=== PATIENT | male | born 1990 | race Caucasian/White ===

== ENCOUNTER 2018-07-03 20:33 | Emergency (ER) | payer MEDICAID, SELFPAY ==
--- NOTE | 2018-07-03 20:35 | W.ED.GENAD ---
Discharge Plan Disposition Patient Disposition: HOME Condition: Stable Discharge Details Chief Complaint: RespSymp Clinical Impression: Asthma with exacerbation Primary Care Provider: Chasity,[facility] ED Provider: Eduar Johnson Home Meds and New Rx's Prescriptions: New prednisone 20 mg tablet 60 mg PO DAILY 4 Days Qty: 12 RF: 0 No Action Advair Diskus 100-50 mcg/dose Blister With Device 1 puff Inhalation BID RF: 0 albuterol sulfate 90 mcg/actuation Hfa Aerosol Inhaler 2 puff Inhalation PRN PRNRF: 0 Spiriva with HandiHaler 18 mcg Capsule, W/Inhalation Device 1 puff Inhalation DAILY RF: 0 Suboxone 12-3 mg Film 20 mg SUBLINGUAL DAILY RF: 0 Discharge Instructions Instructions: Asthma (ED) Additional Instructions: follow up with your primary care provider within 1 week if you have worsening shortness of breath despite using your inhaler return to the emergency department for reevaluation Medical Decision Making 27 yo male with hx of asthma, on suboxone and denies current drug use, smokes, comes in with 2-3 days of wheezing. States he just had a child delivered upstairs and hasn't been at home and doesn't have his meds. Came down because he wants an inhaler and declines a nebulizer. Denies fevers or recent travel. He has wheezing bilaterally on exam, speaking in full sentences. He is noted to have oxygen saturation of 91% on room air on my exam but still declines to have a neb. I will start him on prednisone and give an inhaler until he can get home. He has no fevers or focal findings on exam so doubt pneumonia at this time and do not feel xray indicated or abx Differential Diagnosis uri, asthma, pna HPI General Mode of arrival: ambulatory. Date/Time Provider Initiated Documentation: 07/03/18 20:35. Limitations to Documentation: no limitations. Information obtained by: patient. History of Present Illness 27 year old M presents to the emergency department with the chief complaint of wheezing, described as mild, with intensity rated at 3. Patient started experiencing this day(s) (3) and it has been constant. No relieving factors improve symptom(s), No exacerbating factors reported . Patient did receive the following treatments prior to arrival, none Related Data Home Medications Medication Instructions Recorded Confirmed albuterol sulfate 2 puff INHALATION PRN PRN 07/03/18 07/03/18 buprenorphine-naloxone [Suboxone] 20 mg SUBLINGUAL DAILY 07/03/18 07/03/18 fluticasone-salmeterol [Advair 1 puff INHALATION BID 07/03/18 07/03/18 Diskus] prednisone 60 mg PO DAILY 4 Days #12 tab 07/03/18 tiotropium bromide [Spiriva with 1 puff INHALATION DAILY 07/03/18 07/03/18 HandiHaler] Previous Rx's Medication Instructions Recorded prednisone 60 mg PO DAILY 4 Days #12 tab 07/03/18 Allergies Allergy/AdvReac Type Severity Reaction Status Date / Time No Known Allergies Allergy Unverified 07/03/18 20:41 Review of Systems Review of Systems All systems reviewed & are unremarkable except as noted in HPI and below Constitutional Denies weakness Eyes Denies loss of vision ENT Denies change in voice Cardiovascular Denies chest pain Gastrointestinal Denies abdominal pain, Denies nausea and Denies vomiting Musculoskeletal Denies joint swelling Integumentary/Breasts Denies rash Neurologic Denies loss of vision and Denies weakness Psychiatric Denies depression [facility] Social History Smoking/Tobacco Use Status: Current every day Exam Const General: no acute distress Orientation: alert HENMT Head: normal to inspection Ears: external ears normal General nose exam: external nose normal Mouth: moist mucous membranes Eyes General: appearance normal, both eyes and all related structures Neck Neck: normal visual inspection Resp Effort & Inspection: normal respiratory effort and able to speak in complete sentences Cardio Rate: regular rate Skin General skin exam: no rashes or lesions noted Neuro General: alert and oriented x3 Extrem General: normal to inspection Psych Mental Status: mental status grossly normal
[2018-07-03 20:38] VITALS: BP 132/80; PULSE 90; RESP 16; TEMP 36.6; O2SAT 89
--- NOTE | 2018-07-03 20:43 | ED.GENADUL_ITS ---
Discharge Plan Disposition Patient Disposition: HOME Condition: Stable Discharge Details Chief Complaint: RespSymp Clinical Impression: Asthma with exacerbation Primary Care Provider: Chasity,[facility] ED Provider: Eduar Johnson Home Meds and New Rx's Prescriptions: New prednisone 20 mg tablet 60 mg PO DAILY 4 Days Qty: 12 RF: 0 No Action Advair Diskus 100-50 mcg/dose Blister With Device 1 puff Inhalation BID RF: 0 albuterol sulfate 90 mcg/actuation Hfa Aerosol Inhaler 2 puff Inhalation PRN PRNRF: 0 Spiriva with HandiHaler 18 mcg Capsule, W/Inhalation Device 1 puff Inhalation DAILY RF: 0 Suboxone 12-3 mg Film 20 mg SUBLINGUAL DAILY RF: 0 Discharge Instructions Instructions: Asthma (ED) Additional Instructions: follow up with your primary care provider within 1 week if you have worsening shortness of breath despite using your inhaler return to the emergency department for reevaluation Medical Decision Making 27 yo male with hx of asthma, on suboxone and denies current drug use, smokes, comes in with 2-3 days of wheezing. States he just had a child delivered upstairs and hasn't been at home and doesn't have his meds. Came down because he wants an inhaler and declines a nebulizer. Denies fevers or recent travel. He has wheezing bilaterally on exam, speaking in full sentences. He is noted to have oxygen saturation of 91% on room air on my exam but still declines to have a neb. I will start him on prednisone and give an inhaler until he can get home. He has no fevers or focal findings on exam so doubt pneumonia at this time and do not feel xray indicated or abx Differential Diagnosis uri, asthma, pna HPI General Mode of arrival: ambulatory . Date/Time Provider Initiated Documentation: 07/03/18 20:35 . Limitations to Documentation: no limitations . Information obtained by: patient . History of Present Illness 27 year old M presents to the emergency department with the chief complaint of wheezing, described as mild, with intensity rated at 3. Patient started experiencing this day(s) (3) and it has been constant. No relieving factors improve symptom(s), No exacerbating factors reported . Patient did receive the following treatments prior to arrival, none Related Data Home Medications Medication Instructions Recorded Confirmed albuterol sulfate 2 puff INHALATION PRN PRN 07/03/18 07/03/18 buprenorphine-naloxone [Suboxone] 20 mg SUBLINGUAL DAILY 07/03/18 07/03/18 fluticasone-salmeterol [Advair 1 puff INHALATION BID 07/03/18 07/03/18 Diskus] prednisone 60 mg PO DAILY 4 Days #12 tab 07/03/18 tiotropium bromide [Spiriva with 1 puff INHALATION DAILY 07/03/18 07/03/18 HandiHaler] Previous Rx's Medication Instructions Recorded prednisone 60 mg PO DAILY 4 Days #12 tab 07/03/18 Allergies Allergy/AdvReac Type Severity Reaction Status Date / Time No Known Allergies Allergy Unverified 07/03/18 20:41 Review of Systems Review of Systems All systems reviewed & are unremarkable except as noted in HPI and below Constitutional Denies weakness Eyes Denies loss of vision ENT Denies change in voice Cardiovascular Denies chest pain Gastrointestinal Denies abdominal pain, Denies nausea and Denies vomiting Musculoskeletal Denies joint swelling Integumentary/Breasts Denies rash Neurologic Denies loss of vision and Denies weakness Psychiatric Denies depression [facility] Social History Smoking/Tobacco Use Status: Current every day Exam Const General: no acute distress Orientation: alert HENMT Head: normal to inspection Ears: external ears normal General nose exam: external nose normal Mouth: moist mucous membranes Eyes General: appearance normal, both eyes and all related structures Neck Neck: normal visual inspection Resp Effort & Inspection: normal respiratory effort and able to speak in complete sentences Cardio Rate: regular rate Skin General skin exam: no rashes or lesions noted Neuro General: alert and oriented x3 Extrem General: normal to inspection Psych Mental Status: mental status grossly normal
[2018-07-03] MEDS: Albuterol HFA 8 GM 60 PUFF INH IH (20:46)
[2018-07-03] MEDS: predniSONE 20 MG TAB 60 MG PO (20:46)
--- NOTE | 2018-07-03 20:47 | NUR.NOTE ---
patient medicated per MD order Nursing Note:
[2018-07-03 20:48] VITALS: BP 132/80; PULSE 90; RESP 16; TEMP 36.6; O2SAT 89
== END 2018-07-03 20:50 | disposition home or self-care (01) ==
PROVIDERS: Emergency Provider Emergency Medicine
DX: R06.2 Wheezing (principal); F17.210 Nicotine dependence, cigarettes, uncomplicated; J45.909 Unspecified asthma, uncomplicated
CPT/HCPCS: 99283; J7512

== ENCOUNTER 2019-02-14 22:57 | Emergency (ER) | payer MEDICAID, SELFPAY ==
[2019-02-14 23:06] VITALS: PULSE 97; RESP 18; TEMP 36.6; O2SAT 89
--- NOTE | 2019-02-14 23:12 | DI.RAD_ITS ---
SYMPTOM/DIAGNOSIS: COUGH,SOB, WHEEZE PA AND LATERAL CHEST: The heart is not enlarged. The lungs appear grossly clear with mild prominence of pulmonary interstitial markings which may represent chronic disease. No pleural effusion. No pneumothorax. CONCLUSION: No gross acute consolidation. Pulmonary hyperinflation and scarring noted.
--- NOTE | 2019-02-14 23:12 | ED.GENADUL_ITS ---
Discharge Plan Disposition Patient Disposition: HOME Condition: Good Discharge Details Chief Complaint: RespSymp Clinical Impression: Asthma attack Primary Care Provider: Chasity,[facility] ED Provider: Larry Mcdaniel Home Meds and New Rx's Prescriptions: New ipratropium-albuterol 0.5 mg-3 mg(2.5 mg base)/3 mL solution for nebulization 3 ml IH Q6H Qty: 180 RF: 0 prednisone 50 MG tablet 50 mg PO DAILY Qty: 5 RF: 0 doxycycline hyclate 100 mg tablet 100 mg PO BID Qty: 20 RF: 0 Continued Advair Diskus 100-50 mcg/dose Blister With Device 1 puff Inhalation BID RF: 0 albuterol sulfate 90 mcg/actuation Hfa Aerosol Inhaler 2 puff Inhalation PRN PRNRF: 0 Spiriva with HandiHaler 18 mcg Capsule, W/Inhalation Device 1 puff Inhalation DAILY RF: 0 Suboxone 12-3 mg Film 20 mg SUBLINGUAL DAILY RF: 0 Discharge Instructions Instructions: Asthma (ED) Additional Instructions: Please stop smoking. Take the antibiotic as directed. Please use the inhaler every 6 hours as needed. Over the next 48 hours please use your nebulizer breathing treatment every 4-6 hours as needed. Please take the prednisone as directed. If you notice any worsening of your symptoms, or any new symptoms such as vomiting, diarrhea, fever, chills, shortness of breath, chest pain, numbness, weakness, or fainting , please return immediately to the emergency department for reevaluation. Please follow up with your primary care provider as soon as possible for reassessment and reevaluation. As always, it was a pleasure participating in your medical care today. Medical Decision Making This is a pleasant 28-year-old male with a past medical history of asthma who continues to smoke. He ran out of his inhaler a few days ago over the last 48 hours is noticed increased shortness of breath with a dry nonproductive cough. Smokes half a pack per day. Exam demonstrates O2 saturation at 89%, unlabored respiratory effort. Mild wheezes throughout. Differential is highest for asthma exacerbation. We will give breathing treatments and steroids. Will get chest x-ray to rule out acute pneumonia. Patient appears clinically stable at this time. 12:26 AM Chest x-ray results have returned, there is questionable infiltrate versus chronic scar. His cough is been nonproductive and he has no fever and chills. I feel that pneumonia is unlikely, but given his asthma exacerbation I will send him home with a prescription for doxycycline. We have instructed that if he develops fever chills or productivity for his cough or does not have improvement of his symptoms with inhalers or nebulizer treatment that he should start taking the antibiotic. After breathing treatments and steroids here in the ED he has had notable subjective improvement, he feels much better and is asking to go home. Oxygen saturation is now in the mid to low 90s peer repeat lung exam demonstrates notable improvement of breath sounds. We have given 1 more DuoNeb here. Respecting his wishes the patient does not want to be admitted, and we will let him be discharged. I had a long discussion with him regarding the importance of close follow-up, smoking cessation, as well as the importance of steroid and nebulizer use. We will give him an albuterol inhaler and spacer here. I discussed red flags which to immediately return the patient understands. Diagnosis asthma exacerbation. I have extensively reviewed the treatment plan and discharge instructions with the patient. I have addressed all patient concerns at this time. The patient was made aware of what symptoms to monitor for that would warrant a return to the emergency department. Discussed the plan with the patient, they demonstrate verbal understanding and agreement with our assessment and plan at this time. FINDINGS: Lungs: Patchy density right lower lobe and left upper lobe consistent with infiltrate or scar. No prior films for comparison. Pleural space: Blunted posterior costophrenic angles may represents scarring or small pleural effusions. Heart/Mediastinum: Unremarkable. No cardiomegaly. Bones/joints: Unremarkable for patient's age. IMPRESSION: Blunted posterior costophrenic angles. Patchy density right lower lobe and left upper lobe consistent with developing infiltrate versus scar. No prior films for comparison. Recommend short term interval followup chest x-ray. Dictated and Authenticated by: Chyna Lombardo MD. Ordering:MARIBEL Juarez MD [facility] General Date/Time Provider Initiated Documentation: 02/14/19 23:01 . HPI Narrative: This is a pleasant 28-year-old male with a past medical history of asthma, continued tobacco abuse who presents today for shortness of breath. Shortness of breath started yesterday. He still smokes half a pack per day. He lost his inhaler a few days ago. Does admit to a dry nonproductive cough. States that symptoms feel identical to previous asthma episodes. He denies any hemoptysis. He has not taken any breathing treatments for the last few days. He denies any fever chills, chest pain, abdominal pain, nausea vomiting. He denies any diarrhea. No other complaints at this time. Of note he was at [facility] 3 weeks ago where he had a evaluation, was placed on antibiotics at that time, and then eventually discharged. Related Data Home Medications Medication Instructions Recorded Confirmed Advair Diskus 1 puff INHALATION BID 07/03/18 07/03/18 Spiriva with HandiHaler 1 puff INHALATION DAILY 07/03/18 07/03/18 Suboxone 20 mg SUBLINGUAL DAILY 07/03/18 07/03/18 albuterol sulfate 2 puff INHALATION PRN PRN 07/03/18 07/03/18 doxycycline hyclate 100 mg PO BID #20 tab 02/15/19 ipratropium-albuterol 3 ml IH Q6H #180 ml 02/15/19 prednisone 50 mg PO DAILY #5 tab 02/15/19 Previous Rx's Medication Instructions Recorded doxycycline hyclate 100 mg PO BID #20 tab 02/15/19 ipratropium-albuterol 3 ml IH Q6H #180 ml 02/15/19 prednisone 50 mg PO DAILY #5 tab 02/15/19 Allergies Allergy/AdvReac Type Severity Reaction Status Date / Time No Known Allergies Allergy Unverified 07/03/18 20:41 General Stated Complaint: RespSymp CHRISTY: 3 Review of Systems Review of Systems All systems reviewed & are unremarkable except as noted in HPI and below PFSH Social History Smoking/Tobacco Use Status: Current every day Tobacco Type: cigarettes Alcohol Intake: never Drug use: Occasionally Substance use type: marijuana Do you feel safe in your relationship?: Yes Exam Narrative Exam Narrative: 1.Const: Well-nourished, Well-developed, appearing stated age 2.Eyes: PERRL, no conjunctival injection, and symmetrical lids. 3.ENT: Atraumatic external nose and ears. Moist MM. Neck: Symmetric, trachea midline, No thyromegaly. 4.CVS: +S1/S2, No murmurs or gallops. Peripheral pulses 2+ and equal in all extremities. Brisk capillary refill in all extremities. 5.RESP: Unlabored respiratory effort. Notable wheezes throughout, no crackles or rhonchi. No evidence of acute respiratory distress. 6.GI: Soft, Nontender/Nondistended, No hepatosplenomegaly. No guarding or rebound. 7.MSK: Normocephalic/Atraumatic, Extremities w/o deformity or ttp No cyanosis or clubbing, Normal movement of all extremities 8.Skin: Warm, Dry. No rashes or lesions. 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 Sensation grossly intact, no focal neurologic deficits. 10.Psych: (AAO) x3. Appropriate mood and affect Course Vital Signs Temperature 36.6 C 02/14/19 23:06 Pulse 97 H 02/14/19 23:06 Respiratory Rate 18 02/14/19 23:06 Pulse Oximetry 89 L 02/14/19 23:06 Temperature 36.6 C 02/14/19 23:06 Temperature Source Skin 02/14/19 23:06 Pulse 97 H 02/14/19 23:06 Respiratory Rate 18 02/14/19 23:06 Blood Pressure Position Sitting 02/14/19 23:06 Pulse Oximetry 89 L 02/14/19 23:06 Oxygen Delivery Method Room Air 02/14/19 23:06 Oxygen Flow Rate 0 02/14/19 23:06
[2019-02-14] MEDS: Albuterol/Ipratropium 3 ML UPD VIAL 9 ML UPD (23:15)
[2019-02-14] MEDS: methylPREDNISolone SUCC 125 MG VIAL IVP (23:25)
[2019-02-15 00:15] VITALS: BP 100/56; PULSE 64; RESP 16; TEMP 36.5; O2SAT 91
--- NOTE | 2019-02-15 00:22 | DI.VRAD_ITS ---
EXAM: XR Chest, 2 Views EXAM DATE/TIME: 02/14/2019 11:13 PM CLINICAL HISTORY: 28 years old, male; Cough and shortness of breath and wheezing; Patient HX: SOB and wheeze for 3 weeks, states cough is a smoker's cough TECHNIQUE: Imaging protocol: XR of the chest, 2 views. COMPARISON: No relevant prior studies available. FINDINGS: Lungs: Patchy density right lower lobe and left upper lobe consistent with infiltrate or scar. No prior films for comparison. Pleural space: Blunted posterior costophrenic angles may represents scarring or small pleural effusions. Heart/Mediastinum: Unremarkable. No cardiomegaly. Bones/joints: Unremarkable for patient's age. IMPRESSION: Blunted posterior costophrenic angles. Patchy density right lower lobe and left upper lobe consistent with developing infiltrate versus scar. No prior films for comparison. Recommend short term interval followup chest x-ray. Dictated and Authenticated by: Chyna Lombardo MD. Ordering:MARIBEL Juarez MD
[2019-02-15] MEDS: Albuterol/Ipratropium 3 ML UPD VIAL UPD (00:24)
[2019-02-15 00:35] VITALS: PULSE 88; O2SAT 94
[2019-02-15] MEDS: Inhaler, Assist Device 1 EACH MC (00:36)
[2019-02-15] MEDS: Albuterol HFA 8 GM 60 PUFF INH IH (00:36)
== END 2019-02-15 00:35 | disposition home or self-care (01) ==
PROVIDERS: Emergency Provider Student in an Organized Health Care Education/Training Program
DX: J45.901 Unspecified asthma with (acute) exacerbation (principal); R09.02 Hypoxemia; F17.210 Nicotine dependence, cigarettes, uncomplicated
CPT/HCPCS: 94640; 96374; 99284; 71046; J2930; J7620